=== PATIENT | male | born 1990 | race Asian ===

== ENCOUNTER 2022-10-02 14:29 | Emergency (ER) | payer SELFPAY ==
[2022-10-02] MEDS ORDERED: Tetracaine HCl/PF 0.5% 4 ML Bottle EYEBOTH ONE (14:59)
[2022-10-02] MEDS ORDERED: Erythromycin Base 0.5% Ophth Oint 1 GM Tube EYELF ONE (16:26)
== END 2022-10-02 16:45 | disposition home or self-care (01) ==
LOC: MW.ED 14:29
DX: S05.02XA Injury of conjunctiva and corneal abrasion without foreign body, left eye, initial encounter (principal); Z72.0 Tobacco use; W22.09XA Striking against other stationary object, initial encounter
CPT/HCPCS: 99283; A9270; J3490